=== PATIENT | male | born 1975 | race Caucasian/White ===

== ENCOUNTER 2018-09-08 21:14 | Emergency (ER) | payer OTHER ==
[~2018-09-08] VITALS: Ht 185.4 cm; Wt 124.7 kg
[2018-09-08 21:30] VITALS: BP 176/107
[2018-09-08] MEDS ORDERED: LISINOPRIL20 MG PO (21:33)
[2018-09-08] MEDS ORDERED: OMEPRAZOLE 20 M20 M1 PO (21:33)
[2018-09-08] MEDS ORDERED: ALLEGRA-D 24 H1 EACH PO (21:36)
[2018-09-08] MEDS ORDERED: AUGMENTIN 875-1 EACH PO (21:36)
== END 2018-09-08 21:47 | disposition home or self-care (01) ==
LOC: M.ERS 21:14
DX: J32.9 Chronic sinusitis, unspecified (principal); I10 Essential (primary) hypertension

== ENCOUNTER 2019-04-10 14:42 | Emergency (ER) | payer OTHER ==
[~2019-04-10] VITALS: Ht 185.4 cm; Wt 127.0 kg
[~2019-04-10 14:42] MED LIST: ALLEGRA-D 24 H1 EACH PO; AUGMENTIN 875-1 EACH PO; LISINOPRIL20 MG PO; OMEPRAZOLE 20 M20 M1 PO
[2019-04-10 15:25] LABS: INFLUENZA A ANTIGEN Negative (Negative); INFLUENZA B ANTIGEN Negative (Negative)
[2019-04-10 15:26] LABS: HEMATOCRIT 47.5 % (42.0-52.0); HEMOGLOBIN 15.3 gm/dL (14.0-18.0); MCHC 32.3 g/dL (28.0-37.0); MCV 77.4 fL (80.0-100.0); NUCLEATED RBCS 0 /100WBC; PLATELET COUNT* 250 thou/uL (150-400); RBC 6.14 mil/uL (4.50-6.00); RDW-CV 15.8 % (10.5-14.5); WBC 12.5 thou/uL (4.0-11.0)
[2019-04-10 15:36] LABS: CALCIUM 8.5 mg/dL (8.5-10.1); CREATININE 1.1 mg/dL (0.6-1.3); POTASSIUM 4.1 mmol/L (3.5-5.1)
[2019-04-10 15:41] LABS: ALBUMIN 3.8 g/dL (3.4-5.0); TOTAL PROTEIN 7.9 g/dL (6.4-8.2)
[2019-04-10 16:20] LABS: ABSOLUTE EOSINOPHILS 0.8 thou/uL (0.0-0.7); ABSOLUTE LYMPHOCYTES 0.5 thou/uL (0.8-5.3); ABSOLUTE MONOCYTES 0.1 thou/uL (0.0-1.2); ABSOLUTE NEUTROPHILS 11.1 thou/uL (1.6-8.1); PLATELET ESTIMATE ADEQUATE
[2019-04-10] MEDS ORDERED: ZOFRAN ODT4 MG PO (17:23)
[2019-04-10] MEDS ORDERED: ULTRAM 50MG TAB50 MG PO (18:19)
[2019-04-10] MEDS ORDERED: IBUPROFEN 800800 MG PO (18:19)
[2019-04-10] MEDS ORDERED: LISINOPRIL-HCT1 EAC2 PO (18:27)
[2019-04-10 18:29] VITALS: BP 167/101
== END 2019-04-10 18:30 | disposition home or self-care (01) ==
LOC: M.ERS 14:42
PROVIDERS: Personal Emergency Response Attendant
DX: K52.9 Noninfective gastroenteritis and colitis, unspecified (principal); I10 Essential (primary) hypertension; K21.9 Gastro-esophageal reflux disease without esophagitis

== ENCOUNTER 2020-05-12 12:33 | Emergency (ER) | payer OTHER ==
[~2020-05-12] VITALS: Ht 185.4 cm; Wt 120.2 kg
[~2020-05-12 12:33] MED LIST changes: +IBUPROFEN 800800 MG PO; +LISINOPRIL-HCT1 EAC2 PO; +ULTRAM 50MG TAB50 MG PO; +ZOFRAN ODT4 MG PO
[2020-05-12] MEDS ORDERED: DEXAMETHASONE 44 M1 PO (13:17)
[2020-05-12] MEDS ORDERED: ZPAK PO (13:17)
[2020-05-12 14:01] VITALS: BP 169/92
== END 2020-05-12 13:30 | disposition home or self-care (01) ==
LOC: M.ERS 12:33
DX: U07.1 COVID-19 (principal); I10 Essential (primary) hypertension; K21.9 Gastro-esophageal reflux disease without esophagitis; Z79.899 Other long term (current) drug therapy; Z98.890 Other specified postprocedural states